=== PATIENT | female | born 1985 | race African-American/Black ===

== ENCOUNTER 2018-06-02 05:28 | Day surgery (SDC) | payer MEDICAID ==
[~2018-06-02] VITALS: Ht 167.6 cm; Wt 95.7 kg
[~2018-06-02 05:28] MED LIST: ALBU18HF2 IH; PANT20TA3 PO
[2018-06-02] MEDS ORDERED: INDOCYANINE GREEN 25 MG VIAL IV ONE (05:51)
[2018-06-02] MEDS ORDERED: SKIN ADHESIVE 0.7 GM EA TOP ONE (05:51)
[2018-06-02] MEDS ORDERED: BUPIVACAINE HCL 0.5% (5MG/ML) 50ML ONE (05:52)
[2018-06-02] MEDS ORDERED: LACTATED RINGERS 1,000 ML IV SCH (06:00)
[2018-06-02 06:09] LABS: UCG SCREEN NEGATIVE
[2018-06-02] MEDS ORDERED: PROPOFOL 200MG/20ML VIAL IV ONE ×2 (06:36→08:32)
[2018-06-02] MEDS ORDERED: FENTANYL CITRATE/PF 50MCG/ML 5ML VIAL ONE (06:37)
[2018-06-02] MEDS ORDERED: GLYCOPYRROLATE 0.2 MG/ML 2ML VIAL ONE ×2 (06:47→08:21)
[2018-06-02] MEDS ORDERED: NEOSTIGMINE METHYLSULFATE 1MG/ML 10 ML VIAL ONE (06:51)
[2018-06-02] MEDS ORDERED: ONDANSETRON HCL 4MG/2ML INJ IV PRN (09:00)
[2018-06-02] MEDS: HYDROMORPHONE HCL/PF 2MG/ML CPJ IV PRN ×4 (09:21→09:51)
[2018-06-02 09:51] VITALS: BP 114/70
== END 2018-06-02 10:38 | disposition home or self-care (01) ==
LOC: OR 05:28
PROVIDERS: ATTEND Surgery
DX: K80.10 Calculus of gallbladder with chronic cholecystitis without obstruction (principal); K21.9 Gastro-esophageal reflux disease without esophagitis; J45.909 Unspecified asthma, uncomplicated; Z98.890 Other specified postprocedural states; Z79.899 Other long term (current) drug therapy
CPT/HCPCS: 47562; 81025; 88304; G0168; J1170; J2405; J2710; J3010; J3490; J7030; J7120; Q9957; S2900; J2704